=== PATIENT | male | born 1975 | race Caucasian/White ===

== ENCOUNTER 2017-02-15 10:50 | Emergency (ER) | payer BC ==
[~2017-02-15] VITALS: Ht 185.4 cm; Wt 90.7 kg
== END 2017-02-15 11:57 | disposition home or self-care (01) ==
LOC: CED 10:50 → CFTX 10:50
DX: S61.012A Laceration without foreign body of left thumb without damage to nail, initial encounter (principal); W45.8XXA Other foreign body or object entering through skin, initial encounter; Y92.69 Other specified industrial and construction area as the place of occurrence of the external cause
CPT/HCPCS: 12001; 29125; 99283